=== PATIENT | female | born 1955 ===

== ENCOUNTER 2018-06-18 11:04 | Day surgery (SDC) | payer MEDICARE, OTHER ==
[2018-06-13 08:42] VITALS: BMI 33.9
[2018-06-18] MEDS ORDERED: Propofol 10 mg/ml Inj (20 ML) ONE (13:14)
[2018-06-18] MEDS ORDERED: Midazolam 2 MG/2 ML VIAL ONE (13:14)
[2018-06-18] MEDS ORDERED: HYDROmorphone 0.5 mg/0.5 ml ISec IVP PRN (13:53)
[2018-06-18] MEDS ORDERED: Lactated Ringer's 1,000 ML IV SCH (14:00)
[2018-06-18 15:06] VITALS: BP 140/84; PULSE 65; RESP 18; TEMP 98; O2SAT 96
--- NOTE | 2018-06-19 01:03 | OP ---
Copied To: Chapito Valenzuela MD Attending MD: Chapito Valenzuela MD PROCEDURE DATE: 06/18/2018 PREOPERATIVE DIAGNOSES: Endometrial hyperplasia, morbid obesity. POSTOPERATIVE DIAGNOSES: Endometrial polyps with endometrial hyperplasia and morbid obesity. SURGEON: Chapito Valenzuela MD ANESTHESIA: General LMA. ESTIMATED BLOOD LOSS: Minimal. PROCEDURE PERFORMED: Operative hysteroscopy with endometrial polypectomies and dilatation and curettage. DESCRIPTION OF PROCEDURE: The procedure went as follows. After a long discussion was held with the patient, all consent was signed, patient was brought into the operating room. General LMA anesthesia was induced. Patient was prepped and draped in usual sterile fashion. Examination under anesthesia revealed a uterus that was anteverted approximately 8 to 9 cm in size. A weighted speculum was inserted into the vaginal vault. The anterior lip of the cervix was visualized and grasped with a single-tooth tenaculum. Endocervical canal was visualized. It was curetted. That specimen was sent to pathology for examination. Uterus was sounded and sounded to 9 cm. Progressive dilatation of the endocervical canal was then performed and a diagnostic scope was inserted into the cavity. The cavity revealed the patient to have multiple large polyps and some proliferative endometrium. Progressive dilatation again commenced until a operative scope could be inserted into the cavity. Using a loop cautery, polypectomies were performed and followed with a curettage of the endometrial lining. All specimens were sent to pathology for examination of perforation through the cavity. The procedure was terminated at this point. Patient was gently awakened and sent to the recovery room in stable condition. Chapito Valenzuela MD
== END 2018-06-18 17:30 | disposition home or self-care (01) ==
LOC: SDS 11:04
PROVIDERS: ATTEND Obstetrics & Gynecology Gynecology
DX: N95.0 Postmenopausal bleeding (principal); N85.00 Endometrial hyperplasia, unspecified; N84.0 Polyp of corpus uteri; E66.01 Morbid (severe) obesity due to excess calories; Z68.33 Body mass index [BMI] 33.0-33.9, adult
CPT/HCPCS: 58558; 88305; J1170; J2001; J2250; J2405; J2704; J3010; J7120 ×2